=== PATIENT | male | born 2000 | race Caucasian/White ===

== ENCOUNTER 2018-12-07 09:09 | Day surgery (SDC) | payer OTHER ==
[2018-12-04 18:09] VITALS: Ht 170.2 cm; Wt 60.2 kg
[~2018-12-07] VITALS: Ht 170.2 cm; Wt 60.2 kg
[2018-12-07] VITALS (15 sets, daily range): BP systolic 121–151; BP diastolic 72–100; PULSE 80–116; RESP 10–23
[~2018-12-07 09:09] MED LIST: DESFLURANE 15 MIN ONE; DEXAMETHASONE 4 MG/ML 5 ML INJ ONE; FEXO180T61 PO; FLUT9.9S NASAL; LORA10CA PO
--- NOTE | 2018-12-07 10:24 | HPN ---
Date/Time of Note Date/Time of Note DATE: 12/07/18 TIME: 10:24 Interval H&P Admission Note Pt. seen H&P reviewed: No system changes MARCUS OROPEZA M.D. Dec 07, 2018 10:24
[2018-12-07] MEDS ORDERED: LIDOCAINE 1%/EPI (1:100,000) (MDV) 20 ML ONE (10:40)
[2018-12-07] MEDS ORDERED: COCAINE 4% 4 ML TOP ONE (10:41)
[2018-12-07] MEDS ORDERED: BACITRACIN/POLYMYXIN 28.35 GM OINT TOP ONE (10:41)
--- NOTE | 2018-12-07 10:41 | PREAC ---
Date/Time of Note Date/Time of Note DATE: 12/07/18 TIME: 10:39 Anesthesia Eval and Record Evaluation Time Pre-Procedure Interview DATE: 12/07/18 TIME: 10:39 Age 18 Sex male NPO: 8 hrs Preoperative diagnosis NASAL SEPTAL DEVIATION, NASAL FRACTURE Planned procedure BILATERAL LASER TURBINOPLASTY, SEPTOPLASTY, ORIF NASAL FRACTURE Past Medical History Past Medical History: None Surgery & Anesthesia Issues No known issue Meds Anticoagulation: No Beta Deanna within 24 hr: No Reason Beta Deanna not given: Pt. not on B-Deanna Reported Medications Fluticasone Propionate (Flonase Allergy Relief) 9.9 Ml [place].susp, 2 SPRAY NASAL DAILY, #1 BOTTLE TO EACH NOSTRIL 12/04/18 Fexofenadine Hcl* ([place]*) 180 Mg Tablet, 180 MG PO DAILY, #30 TAB 12/04/18 Loratadine* (Claritin*) 10 Mg Capsule, 10 MG PO DAILY, CAP 12/04/18 Meds reviewed: Yes Allergies Coded Allergies: No Known Allergy (Unverified , 12/07/18) Allergies Reviewed: Yes Labs/Studies Labs Reviewed: Reviewed by anesthesiologist test: N/A Pre-procedure Exam Last vitals Vital Signs Date Temp Pulse Resp B/P (MAP) Pulse Ox O2 O2 Flow FiO2 Time Delivery Rate 12/07/18 98.7 80 16 133/75 100 Room Air 10:05 (94) Airway: Adequate mouth opening, Adequate thyromental dist Mallampati: Mallampati II Teeth: Normal Lung: Normal Heart: Normal ASA Physical Status ASA physical status: 1 Emergency: None Planned Anesthetic General/MAC: ETT Planned Pain Management Parenteral pain med Pre-operative Attestations Prior to commencing anesthesia and surgery, the patient was re-evaluated, there was verification of: *The patient's identity *The results of appropriate recent lab work and preoperative vital signs *The above evaluation not changing prior to induction *Anesthetic plan, risk benefits, alternative and complications discussed with patient/family; questions answered; patient/family understands, accepts and wishes to proceed. Júnior Gaitan M.D. Dec 07, 2018 10:41
[2018-12-07] MEDS ORDERED: ROCURONIUM 50 MG INJ ONE (10:44)
[2018-12-07] MEDS ORDERED: NEOSTIGMINE 3 MG/3 ML SYRINGE ONE (10:44)
[2018-12-07] MEDS ORDERED: GLYCOPYRROLATE 0.4 MG INJ ONE (10:44)
[2018-12-07] MEDS ORDERED: FENTAnyl 50 MCG/ML VIAL ONE (10:44)
[2018-12-07] MEDS ORDERED: ONDANSETRON 4 MG INJ ONE (10:44)
[2018-12-07] MEDS ORDERED: CEFAZOLIN 1 GM INJ ONE (10:44)
[2018-12-07] MEDS ORDERED: MIDAZOLAM 1 MG/ML 2 ML INJ ONE (10:44)
[2018-12-07] MEDS ORDERED: PROPOFOL 20 ML ONE (10:44)
[2018-12-07] MEDS ORDERED: hydrALAzine 20 MG INJ IV PRN (11:00)
[2018-12-07] MEDS ORDERED: MEPERIDINE 25 MG INJ IV PRN (11:00)
[2018-12-07] MEDS ORDERED: HYDROmorphONE 1 MG/5 ML IV SYRINGE IV PRN ×2 (11:00)
[2018-12-07] MEDS ORDERED: ALBUTEROL 0.083% (NEB) 2.5 MG/3 ML AMP HHN PRN (11:00)
[2018-12-07] MEDS ORDERED: TRIMETHOBENZAMIDE 100 MG/ML VIAL IM PRN (11:00)
[2018-12-07] MEDS ORDERED: OXYCODONE/ACETAMINOPHEN (5/325) TAB PO PRN ×2 (11:00)
[2018-12-07] MEDS ORDERED: IPRATROPIUM (NEB) 0.5 MG/2.5 ML AMP HHN PRN (11:00)
[2018-12-07] MEDS ORDERED: DIPHENHYDRAMINE 50 MG INJ IV PRN (11:00)
[2018-12-07] MEDS ORDERED: LABETALOL HCL 20MG INJ IV PRN (11:00)
[2018-12-07] MEDS ORDERED: ONDANSETRON 4 MG INJ IV PRN (11:00)
[2018-12-07] MEDS ORDERED: FENTAnyl 50 MCG/ML VIAL IV PRN ×3 (11:00)
[2018-12-07] MEDS ORDERED: EPHEDrine SULFATE 50 MG/5 ML SYG IV PRN (11:00)
[2018-12-07] MEDS ORDERED: MIDAZOLAM 1 MG/ML 2 ML INJ IV PRN (11:00)
[2018-12-07] MEDS ORDERED: FAMOTIDINE 20 MG INJ ONE (12:16)
--- NOTE | 2018-12-07 13:08 | PAC ---
Date/Time of Note Date/Time of Note DATE: 12/07/18 TIME: 13:06 Post-Anesthesia Notes Post-Anesthesia Note Last documented vital signs Vital Signs Date Temp Pulse Resp B/P (MAP) Pulse Ox O2 O2 Flow FiO2 Time Delivery Rate 12/07/18 98.1 106 16 139/77 100% face mask 8L 1300 Activity: WNL Respiratory function: WNL Cardiovascular function: WNL Mental status: Baseline Pain reasonably controlled: Yes Hydration appropriate: Yes Nausea/Vomiting absent: Yes GASTON MOORE Dec 07, 2018 13:08
--- NOTE | 2018-12-07 13:08 | OPR ---
Date/Time of Note Date/Time of Note DATE: 12/07/18 TIME: 13:03 Operative Report Procedure Date: Dec 07, 2018 Preoperative Diagnosis 1. NASAL BONE FRACTURE. 2. SEPTAL DEVIATION. 3. NASAL TURBINATE HYPERTROPHY. 4. CHRONIC NASAL OBSTRUCTION. Postoperative Diagnosis SAME. Operation/Procedure Performed 1. ORIF NASAL BONE FRACTURE. 2. SEPTOPLASTY VIA [facility]. 3. BILATERAL NASAL LASER KTP 532 NM TURBINOPLASTY VIA [facility]. Surgeon see signature line [employer] NONE. Anesthesia Type: general (WITH OT TUBE INTUBATION.12CC 1% LIDOCAINE WITH EPI 1:100,000 SOLN.TOPICAL 4% 4CC COCCAINE SOLN.) Estimated Blood Loss: 10 - 50 ml's Transfusion none Specimen SEPTAL CARTILAGE AND BONE. Grafts/Implants none Tubes/Drains NONE. Complications none Pt Condition Post Procedure: stable Disposition: PACU Indications TO CORRECT DEFORMITY AND IMPROVE BREATHING. Procedure Description SEE DICTATED OPERATIVE REPORT. MARCUS OROPEZA M.D. Dec 07, 2018 13:08
--- NOTE | 2018-12-07 13:09 | PDOCDIS ---
Discharge Instructions DIAGNOSIS Discharge Diagnosis 1. NASAL BONE FRACTURE. 2. SEPTAL DEVIATION. 3. NASAL TURBINATE HYPERTROPHY. 4. CHRONIC NASAL OBSTRUCTION. CONDITION [id number] Patient Condition: [id number] Good HOME CARE INSTRUCTIONS: [id number] Diet Instructions: [id number] Regular ACTIVITY: [id number] Activity Restrictions: [id number] Slowly Increase Activity Rest between Activity Avoid heavy lifting No Sexual Activity Do not operate Machinery Do not operate Power Tool Avoid Heavy Housework [id number] Bathing Restrictions: [id number] Tub Bath FOLLOW UP/APPOINTMENTS Follow-up Plan MY OFFICE IN 7 TO 10 DAYS. SCHOOL/WORK RELEASE May return to School/Work on: Dec 15, 2018 May return to School/Work with: No Restrictions MARCUS OROPEZA M.D. Dec 07, 2018 13:09
[2018-12-07] MEDS: HYDROmorphONE 1 MG/5 ML IV SYRINGE IV PRN ×2 (13:29→13:39)
--- NOTE | 2018-12-07 14:04 | OPR ---
DATE OF OPERATION: 12/07/2018 SURGEON: Maximus Romero MD PREOPERATIVE DIAGNOSES: 1. History of nasal bone fracture with deviation. 2. Septal deviation. 3. Bilateral nasal turbinate tissue hypertrophy. 4. Chronic nasal obstruction. POSTOPERATIVE DIAGNOSES: 1. History of nasal bone fracture with deviation. 2. Septal deviation. 3. Bilateral nasal turbinate tissue hypertrophy. 4. Chronic nasal obstruction. OPERATIONS PERFORMED: 1. Open reduction and internal fixation of nasal bone fracture. 2. Septoplasty using submucosal resection technique. 3. Bilateral laser turbinoplasty procedure using KTP 532 nanometer laser using submucosal resection technique. ESTIMATED BLOOD LOSS: Approximately 40 mL. COMPLICATIONS: No complications. SPECIMENS SENT TO LABORATORY: Septal cartilage and bone for gross microscopic evaluation. ANESTHETIC USED: General anesthesia with orotracheal tube intubation. The patient also had IV Ancef before the case was begun. The patient also had cocaine 4 mL using 4% topically to the nose. The patient also had 12 mL of 1% lidocaine with epinephrine 1:100,000 using 25-gauge needle. INDICATIONS: Mr. Wong Valdovinos is a 18-year-old male who has a history of chronic nasal obstruction after sustaining a nasal bone fracture. The patient currently has a deviated nasal dorsum and septum and has been found to have chronic nasal obstruction. The patient was treated with multiple nasal sprays and decongestants which have met with failure. The patient currently is being scheduled for day procedure which will include open reduction and internal fixation of nasal bone fracture with bilateral laser turbinoplasty procedures as indicated. Risks, benefits and alternatives have been explained thoroughly to Mr. Valdovinos include infection, bleeding, scar formation as well as possible septal perforation and continued deformity of the nose. He also understands the risks of general and local anesthetic agents and the possible side effects and reactions. He signed a consent once his questions were answered. FINDINGS DURING PROCEDURE: Right nasal septal deflection near the floor of the nose. The patient was also found to have a left nasal dorsum deflection with hump deformity. The patient does not have any malignancies, tumors, polyps seen during the procedure. The patient was also found to have enlarged turbinates bilaterally with papillomatous degenerative mucosal changes over the nasal turbinates. DESCRIPTION OF PROCEDURE: The patient was taken to the operating room, placed on the surgical table in supine position, made comfortable by the anesthesiologist, Dr. Gaitan. The patient had EKG, saturation monitor and blood pressure cuff applied. At this point, the patient had a previously started IV in the preinduction area which was infusing well. The patient was given IV sedation and placed under general anesthesia. The airway was maintained and controlled before being successfully orotracheally intubated with orotracheal cuff tube without any complications. Tube was taped to the left corner of the mouth and the eyes were taped for protection. At this point, the table was left in the midline for the surgical procedure. A brief time-out with patient identification and procedures entertained and all were in agreement. At this point, the patient had a Betadine prep to the face area for it was draped out in usual sterile fashion using split sheet and towels. Wet towels were placed around the eyes and around the nose in preparation for laser use. At this point, the nasal cavity was inspected and found to have swollen and enlarged turbinates bilaterally. The patient was also found to have a septal spur on the right side of the nose with almost touching the inferior turbinate on the right side. The patient's nasal dorsum was noted to be deviated with nasal bone fracture with deviation to the left. At this point, the procedure was begun by injecting the nasal cavity along the floor of the nose, nasal septum and then the intercartilage region. There was also injection in the nasal spine area of 1% lidocaine with epinephrine 1:100,000. This is delivered using a 25-gauge 1-/2 needle. At this point, the inferior turbinates bilaterally were injected with this solution in preparation for reduction. Cocaine on cottonoids was applied to the nose and the anterior ethmoid areas. At this point, all personnel in the operating room were asked to place safety goggles on for their protection in preparation for laser use. A 532 nanometer KTP laser was then made ready at 8 davis continuous power. Using a straight handpiece with suction attachment, a fiber was threaded through the handpiece. At this point, a foot pedal was used to activate the laser. At this point, the cottonoids were then removed from the nasal cavity. Using direct visualization, the inferior turbinate on the left side was then reduced in the submucosal space using a stabbing technique with the laser fiber. The smoke was evacuated through the evacuator as the inferior turbinate on left side was noted to shrink in size. At this point, a nasal speculum was then used to outfracture the inferior turbinate on the left dorsal medial wall of the maxillary sinus to give greater patency of the nasal cavity. The right side was done in a similar fashion. It too was reduced in size in the submucosal space. After complete reduction of the nasal turbinates, the septoplasty procedure was begun by approaching the septum on the left side of the nose. Using a #15 Bard-Sabas sharp stainless steel blade, an incision was carried in the anterior septal margin through the mucosal lining down to the underlying cartilage. A [place] elevator was then used to elevate a mucoperichondrial flap on the left side of the nose. At this point, care was taken not to tear the flap as the hemitransfixion incision was completed to the right side of the nose. This was done with a #15 Bard-Sabas sharp stainless steel blade. The [place] elevator was used to elevate a mucoperichondrial flap on the right side. At this point, the deviated cartilage and bone was removed with a Lucy forceps between the 2 flaps. This allowed the flap to swing back towards the midline. At this point, the hemitransfixion incision was then reapproximated with a 4-0 Vicryl suture in simple interrupted fashion. The septum at this point was noted to be in the midline. At this point, an intercartilage incision was then created on the left side of the nose with a #15 Bard-Sabas sharp stainless steel blade. A tenotomy scissor was then introduced inside of this incision site and guided over the dorsum of the nose. The skin was elevated over the nose, bony cartilage and bony structures. At this point to the right side, it was done in a similar fashion through an intercartilage incision. After complete elevation of the skin over the nasal dorsum, a rasp was then reduced inside of the intercartilage incision on the left side. At this point, the nasal dorsum and hump deformity was removed with a rasping technique. A #15 Bard-Sabas sharp stainless steel blade was then used to cut the remaining nasal dorsal cartilage to the level of the nasal dorsum. At this point, the suction was placed inside of the intercartilage incision and removed any remaining blood or cartilage or bone dust that may remain. At this point, the nasal dorsum was noted to be level. rasp was then introduced to the side of intranasal cavity and into the intercartilage incision. Using medial osteotome 4 mm chisel, the nasal bone in the midline was divided up towards the vortex. This was done the right side as well to make medial osteotomies. At this point in the pyramidal region, a #15 Bard-Sabas sharp stainless steel blade was then used to make an incision to enter the pyramidal portion of the nasal bone. At this point, a curved guarded osteotome was used to make an osteotome in the lateral position towards the medial osteotome created and the region of the glabella. This was done the right side as well to free the nasal bones which were removed towards the midline to straighten the nose. At this point, the intercartilage incisions were closed with a 4-0 Vicryl suture in simple interrupted fashion. At this point, the Steri-Strips were placed over the nasal dorsum after benzoin was allowed to dry. A Thermasplint was then applied to the nose, keeping the nasal dorsum in the midline. This ended the procedure. Bacitracin ointment was placed inside the nose after removal of blood from the nasal cavity. A 4 x 4 dressing was placed beneath the nose to catch any drainage. The patient was then taken to the recovery room after being extubated in the operating room. The patient is currently doing well, expects to be discharged to home unless postoperative complications develop. Dictated By: MAXIMUS HUTCHISON/CODI Conf#: [id number] DID#: [id number] KATARINA
== END 2018-12-07 15:40 | disposition home or self-care (01) ==
LOC: SDS 09:09
PROVIDERS: ATTEND Otolaryngology Otolaryngology/Facial Plastic Surgery
DX: J34.2 Deviated nasal septum (principal); J34.3 Hypertrophy of nasal turbinates
CPT/HCPCS: 30520; J0690; J1170; J2175; J2250; J2405; J2710; J3010; Z7610; 88304; 88311; J1100